=== PATIENT | male | born 1985 | race Caucasian/White ===

== ENCOUNTER 2017-04-30 19:18 | Emergency (ER) | payer SELFPAY ==
[2017-04-30] MEDS ORDERED: BOOSTRIX IM ONE (19:38)
[2017-04-30] MEDS ORDERED: ceFAZolin 2 GM in NACL 0.9% 100 ML IV ONE (19:43)
[2017-04-30] MEDS ORDERED: MORPHINE IV ONE ×2 (19:44→20:18)
[2017-04-30] MEDS ORDERED: BENADRYL IV ONE (19:44)
--- NOTE | 2017-04-30 19:50 | Emergency Department Report ---
- General Chief Complaint: Wound/Laceration Stated Complaint: LACERATION Time Seen by Provider: 04/30/17 19:37 Source: patient Mode of arrival: Ambulatory Limitations: Language Barrier - History of Present Illness Initial Comments: 31-year-old male past medical history none p/w c/o large laceration to left hand. Pt is AAox3, has left hand bandaged with gauze. States that he was trimming hedges outside of his home using a 14 inch manual hands chainsaw. Chainsaw accidentally slipped and hit left aspect of patient's manager background. Patient denies any other injuries. Patient speaks Jordanian and I speak fluently and has at bedside who speaks both Uzbek and Jordanian. Patient is not sure of his tetanus vaccine status. Patient has visible large laceration to back of left hand with exposed tendon. Bleeding noted. Appears to be venous and there is no visible arterial pump. Onset/Timin -: hour(s), This evening Location: other (left hand) Extremity Location: Left: Hand 1 - large laceration here Place: home Patient Tetanus UTD: No Context: accidental Associated Symptoms: pain, other (bleeding) Treatments Prior to Arrival: bandage - Related Data Allergies Allergy/AdvReac Type Severity Reaction Status Date / Time Penicillins Allergy Rash Verified 04/30/17 19:29 ED Review of Systems ROS: Stated complaint: LACERATION Other details as noted in HPI Constitutional: denies: chills, fever Eyes: denies: eye pain, eye discharge, vision change ENT: denies: ear pain, throat pain Respiratory: denies: cough, shortness of breath, wheezing Cardiovascular: denies: chest pain, palpitations Endocrine: no symptoms reported Gastrointestinal: denies: abdominal pain, nausea, diarrhea Genitourinary: denies: urgency, dysuria Musculoskeletal: denies: back pain, joint swelling, arthralgia Skin: denies: rash, lesions Neurological: denies: headache, weakness, paresthesias Psychiatric: denies: anxiety, depression Hematological/Lymphatic: denies: easy bleeding, easy bruising ED Past Medical Hx - Past Medical History Previous Medical History?: No - Surgical History Past Surgical History?: No - Social History Smoking Status: Never Smoker Substance Use Type: None ED Physical Exam - General Limitations: Language Barrier General appearance: alert, in no apparent distress - Head Head exam: Present: atraumatic, normocephalic - Eye Eye exam: Present: normal appearance, PERRL, EOMI - ENT ENT exam: Present: mucous membranes moist - Neck Neck exam: Present: normal inspection - Respiratory Respiratory exam: Present: normal lung sounds bilaterally. Absent: respiratory distress - Cardiovascular Cardiovascular Exam: Present: regular rate, normal rhythm. Absent: systolic murmur, diastolic murmur, rubs, gallop - GI/Abdominal GI/Abdominal exam: Present: soft, normal bowel sounds - Rectal Rectal exam: Present: deferred - Extremities Exam Extremities exam: Present: normal inspection - Expanded Upper Extremity Exam Left Shoulder Exam: Present: normal inspection, full ROM Upper Arm exam: Present: normal inspection, full ROM Elbow exam: Present: normal inspection, full ROM Forearm Wrist exam: Present: normal inspection, full ROM Hand Wrist exam: Present: full ROM (ROM wrist, flexion/extension/lumbricals, MCPS, DIPS, PIPs fully intact), tenderness, laceration (7-8 cm laceraion dosral aspect left hand with visible involvement oftendons) Hand L/R Back: 1 - large laceration here with visible tendons Neuro motor exam: Present: wrist extension intact, thumb opposition intact, thumb IP flexion intact, thumb adduction intact, fingers 2-5 abduction intact Neurosensory exam: Present: 2-point discrimination, radial nerve intact, ulnar nerve intact, median nerve intact Vascular: Present: normal capillary refill (distal radial and brachial pulses intact, cap refill less than 1 second all fingers), radial pulse - Back Exam Back exam: Present: normal inspection - Neurological Exam Neurological exam: Present: alert, oriented X3, CN II-XII intact, normal gait - Psychiatric Psychiatric exam: Present: normal affect, normal mood - Skin Skin exam: Present: warm, dry, intact, normal color. Absent: rash ED Course Vital Signs 04/30/17 04/30/17 04/30/17 19:30 20:20 21:19 Temperature 98.8 F Pulse Rate 58 L 56 L Respiratory 20 18 16 Rate Blood Pressure 139/79 Blood Pressure 113/65 [Left] O2 Sat by Pulse 98 97 Oximetry - Laceration /Wound Repair Left Distal Dorsal Hand Wound Location: upper extremity (left distal lateral dosral hand) Wound Length (cm): 9 Wound's Depth, Shape: into muscle, linear, contused tissue (visible subQ tissue and visible torn tendon) Wound Explored: no foreign body removed Irrigated w/ Saline (ccs): 1,000 Betadine Prep?: Yes Anesthesia: 1% Lidocaine Volume Anesthetic (ccs): 8 Wound Debrided: minimal Wound Repaired With: sutures Suture Size/Type: 3:0, proline Number of Sutures: 3 (loosely placed) Sterile Dressing Applied?: No (wrapped with gauze wrap) Progress: Area infiltrated with lidocaine 2% without epinephrine approximately 8 mL good local anesthesia achieved. Area irrigated with 1000 mL of sterile saline and iodine mixture. Multiple flushes to wound directly. Visible venous oozing. Wound loosely approximated with 3 nylon sutures to minimize bleeding until patient can be transferred and reassessed by orthopedics consultation service at [facility]. Wound dressed with gauze and gauze wrap. ED Medical Decision Making - Medical Decision Making A/P: Large laceration to the lateral aspect of left hand on dorsal aspect of the hand 1-case discussed with ED attending Dr. Corral also examine the patient and his injury 2-I called [place] transfer center to consult on-call orthopedic hand surgery for this injury as patient may require a surgical wash out of wound. Case d/w Dr. Britt contract graphic designer hand surgeon who will re-examine the pt upon arrival to [facility] 3-2 g Ancef, analgesia when necessary, nothing by mouth 4- I placed 3 3-0 loose nylon sutures to approximate the wound until ortho consultation can address /clean wound further 5- I explained clinical scenario to pt and his who understand the need for transfer and consultation. Critical care attestation.: If time is entered above; I have spent that time in minutes in the direct care of this critically ill patient, excluding procedure time. ED Disposition Clinical Impression: Laceration of hand, left Qualifiers: Encounter type: initial encounter Foreign body presence: without foreign body Qualified Code(s): S61.412A - Laceration without foreign body of left hand, initial encounter Injury of hand, left Qualifiers: Encounter type: initial encounter Qualified Code(s): S69.92XA - Unspecified injury of left wrist, hand and finger(s), initial encounter Fracture of fifth metacarpal bone Qualifiers: Encounter type: initial encounter Fracture type: open Metacarpal location: shaft Fracture alignment: nondisplaced Laterality: left Qualified Code(s): S62.357B - Nondisplaced fracture of shaft of fifth metacarpal bone, left hand, initial encounter for open fracture Disposition: DC-01 TO HOME OR SELFCARE Is pt being admited?: No Does the pt Need Aspirin: No Condition: Stable
[2017-04-30] MEDS ORDERED: XYLOCAINE 2% INFILTRATI ONE (19:59)
[2017-04-30] MEDS ORDERED: MORPHINE ONE (20:00)
[2017-04-30] MEDS ORDERED: ZOFRAN ONE (20:09)
[2017-04-30] MEDS ORDERED: NACL 0.9% 1000 ML 1,000 ML IV ONE (20:11)
[2017-04-30] MEDS ORDERED: ZOFRAN IV ONE (20:18)
[2017-04-30] MEDS ORDERED: NACL 0.9% 1,000 ML IR ONE (20:36)
[2017-04-30] MEDS ORDERED: NACL 0.9% IR ONE (20:40)
--- NOTE | 2017-04-30 20:47 | XRay Report ---
FINAL REPORT EXAM: XR HAND 3+V LT HISTORY: large laceration LT HAND TECHNIQUE: Three views left hand FINDINGS: There is a large laceration injecting over the left 5th metacarpal. There is cortical irregularity of the ulnar aspect 5th metacarpal which does not appear to extend all the way through the metacarpal bone seen on 1 image only. This may be an artifactual cortical irregularity but given the size of the laceration, a cannot be excluded. There is no fracture or dislocation. There is no radiopaque foreign body. IMPRESSION: Large soft tissue laceration ulnar aspect 5th digit. Possible cortical breach ulnar aspect 5th metacarpal. A dedicated series of the 5th digit could further assess whether this is a true breach of the cortex or air within the laceration causing artifact. No radiopaque foreign body. No fracture or dislocation.
[2017-04-30 21:20] VITALS: BP 113/65
== END 2017-04-30 22:24 | disposition home or self-care (01) ==
LOC: ED 19:18
DX: S62.357B Nondisplaced fracture of shaft of fifth metacarpal bone, left hand, initial encounter for open fracture (principal); S61.412A Laceration without foreign body of left hand, initial encounter; Z88.0 Allergy status to penicillin; W26.8XXA Contact with other sharp object(s), not elsewhere classified, initial encounter; Y93.89 Activity, other specified; Y99.9 Unspecified external cause status; Y92.009 Unspecified place in unspecified non-institutional (private) residence as the place of occurrence of the external cause
CPT/HCPCS: 29125; 73130; 90471; 90715; 96365; 96375; 99285; J0690; J1200; J2270; J2405; J7030